=== PATIENT | female | born 1990 | race Caucasian/White ===

== ENCOUNTER 2020-08-07 22:14 | Emergency (ER) | payer OTHER ==
[~2020-08-07 22:14] MED LIST: BACTRIM 400-801 EACH PO
== END 2020-08-07 23:37 | disposition left against medical advice (07) ==
LOC: ER1 22:14
DX: R51.9 Headache, unspecified (principal); Z53.21 Procedure and treatment not carried out due to patient leaving prior to being seen by health care provider; Y04.8XXA Assault by other bodily force, initial encounter
CPT/HCPCS: 93005

== ENCOUNTER 2021-03-29 12:14 | Emergency (ER) | payer OTHER ==
[2021-03-29] MEDS ORDERED: DOXYCYCLINE HY100 MG PO (14:08)
[2021-03-29] MEDS ORDERED: FLAGYL500 MG PO (14:08)
[2021-03-30 07:13] LABS: HBSAG SCREEN Negative (Negative); HEP A AB, IGM Negative (Negative); HEP B CORE AB, IGM Negative (Negative); HEP C VIRUS AB >11.0 (0.0-0.9)
[2021-03-30 08:13] LABS: HIV SCREEN 4TH GENERATION WRFX Non Reactive (Non Reactive)
[2021-03-30 16:13] LABS: T PALLIDUM AB (FTA-AB) Non Reactive (Non Reactive)
[2021-03-30 23:08] LABS: CHLAMYDIA TRACHOMATIS, NAA Negative (Negative); NEISSERIA GONORRHOEAE, NAA Negative (Negative)
== END 2021-03-29 14:31 | disposition home or self-care (01) ==
LOC: ER1 12:14
PROVIDERS: Emergency Medicine; Student in an Organized Health Care Education/Training Program
DX: Z20.2 Contact with and (suspected) exposure to infections with a predominantly sexual mode of transmission (principal); N89.8 Other specified noninflammatory disorders of vagina; F17.200 Nicotine dependence, unspecified, uncomplicated; Z88.1 Allergy status to other antibiotic agents
CPT/HCPCS: 80074; 81001; 84703; 86694; 86780; 87389; 99284; J0696

== ENCOUNTER 2021-05-12 22:56 | Emergency (ER) | payer OTHER ==
[~2021-05-12 22:56] MED LIST changes: +DOXYCYCLINE HY100 MG PO; +FLAGYL500 MG PO
[2021-05-13 00:35] LABS: BORDETELLA PARAPERTUSSIS Not Detected (Not Detectd); BORDETELLA PERTUSSIS Not Detected (Not Detectd); CHLAMYDIA PNEUMONIAE Not Detected (Not Detectd); CORONAVIRUS HKU1 Not Detected (Not Detectd); CORONAVIRUS NL63 Not Detected (Not Detectd); CORONAVIRUS OC43 Not Detected (Not Detectd); CORONOAVIRUS 229E Not Detected (Not Detectd); HUMAN METAPNEUMOVIRUS Not Detected (Not Detectd); HUMAN RHINOVIRUS/ENTEROVIRUS Not Detected (Not Detectd); INFLUENZA A Not Detected (Not Detectd); INFLUENZA B Not Detected (Not Detectd); MYCOPLASMA PNEUMONIAE Not Detected (Not Detectd); PARAINFLUENZA VIRUS 1 Not Detected (Not Detectd); PARAINFLUENZA VIRUS 3 Not Detected (Not Detectd); PARAINFLUENZA VIRUS 4 Not Detected (Not Detectd); RESPIRATORY SYNCYTIAL VIRUS Not Detected (Not Detectd)
[2021-05-13 01:38] LABS: PARAINFLUENZA VIRUS 2 DETECTED (Not Detectd); SARS-CoV-2 NOT DETECTED (Not Detectd)
[2021-05-13] MEDS ORDERED: PREDNISONE 20 M20 MG PO (02:06)
[2021-05-13] MEDS ORDERED: PROAIR HFA8.5 GM INH (02:06)
== END 2021-05-13 02:46 | disposition home or self-care (01) ==
LOC: ER1 22:56
PROVIDERS: Physician Assistant
DX: J45.901 Unspecified asthma with (acute) exacerbation (principal); J02.9 Acute pharyngitis, unspecified; E11.9 Type 2 diabetes mellitus without complications; F17.200 Nicotine dependence, unspecified, uncomplicated; Z20.822 Contact with and (suspected) exposure to COVID-19; Z79.4 Long term (current) use of insulin; Z88.0 Allergy status to penicillin; Z88.2 Allergy status to sulfonamides
CPT/HCPCS: 71045; 82962; 87081; 87633; 87880; 94664; 94760; 99283

== ENCOUNTER 2021-05-29 09:50 | Emergency (ER) | payer OTHER ==
[~2021-05-29 09:50] MED LIST changes: +PREDNISONE 20 M20 MG PO; +PROAIR HFA8.5 GM INH
[2021-05-29] MEDS ORDERED: NAPROSYN500 MG PO (10:39)
== END 2021-05-29 10:50 | disposition home or self-care (01) ==
LOC: ER1 09:50
DX: S63.501A Unspecified sprain of right wrist, initial encounter (principal); F17.200 Nicotine dependence, unspecified, uncomplicated; Z88.0 Allergy status to penicillin; Z88.2 Allergy status to sulfonamides; W19.XXXA Unspecified fall, initial encounter
CPT/HCPCS: 73090; 73110; 99283

== ENCOUNTER 2021-07-26 03:30 | Emergency (ER) | payer OTHER ==
[~2021-07-26 03:30] MED LIST changes: +NAPROSYN500 MG PO
== END 2021-07-26 04:12 | disposition left against medical advice (07) ==
LOC: ER1 03:30
DX: M54.2 Cervicalgia (principal); R00.0 Tachycardia, unspecified; F17.210 Nicotine dependence, cigarettes, uncomplicated; Z88.0 Allergy status to penicillin
CPT/HCPCS: 99282; Q9967